=== PATIENT | female | born 1985 | race Two or more races ===

== ENCOUNTER → 2016-07-09 | Outpatient (CLI) | payer OTHER ==
[~2016-07-09] MED LIST: OMNIPAQUE 350 MG/ML, 100ML BOTTLE ONE
== END | disposition home or self-care (01) ==
LOC: CFH 08:20
PROVIDERS: ATTEND Family Medicine
DX: R74.8 Abnormal levels of other serum enzymes (principal)
CPT/HCPCS: 74177; Q9967

== ENCOUNTER → 2017-11-12 | Outpatient (CLI) | payer OTHER ==
[~2017-11-12] MED LIST changes: +NONE PER PT; -OMNIPAQUE 350 MG/ML, 100ML BOTTLE ONE
== END | disposition home or self-care (01) ==
LOC: STAR 15:14
PROVIDERS: ATTEND Specialist
DX: Z02.9 Encounter for administrative examinations, unspecified (principal)

== ENCOUNTER 2017-11-17 08:56 | Day surgery (SDC) | payer OTHER ==
[~2017-11-17] VITALS: Ht 160 cm; Wt 66.5 kg
[2017-11-17] MEDS ORDERED: LACTATED RINGERS 1,000 ML IV SCH (09:28)
[2017-11-17] MEDS ORDERED: ONDANSETRON ODT 8 MG PO ONE (09:30)
[2017-11-17] MEDS ORDERED: ACETAMINOPHEN 500 MG TABLET PO ONE (09:30)
[2017-11-17] MEDS ORDERED: SCOPOLAMINE PATCH, 1.5MG PATCH.TD72 TD ONE (09:30)
[2017-11-17] MEDS ORDERED: OxyconTIN ER 20 MG TAB.ER PO ONE (09:30)
[2017-11-17] MEDS ORDERED: GABAPENTIN 300 MG CAPSULE PO ONE (09:30)
[2017-11-17 09:31] VITALS: BP 101/58
[2017-11-17] MEDS ORDERED: FENTANYL PF 250 MCG/5ML ONE (09:42)
[2017-11-17] MEDS ORDERED: MIDAZOLAM 1 MG/ML, 2ML ONE (09:42)
[2017-11-17] MEDS ORDERED: PROPOFOL 10 MG/ML, 20ML ONE (09:43)
[2017-11-17] MEDS ORDERED: GLYCOPYRROLATE 0.4 MG/2 ML, 2ML ONE (09:44)
[2017-11-17] MEDS ORDERED: NEOSTIGMINE 1 MG/ML, 10ML ONE (09:44)
[2017-11-17] MEDS ORDERED: ROCURONIUM 10MG/ML,5ML ONE (09:44)
[2017-11-17] MEDS ORDERED: CEFAZOLIN 1,000 MG ONE ×2 (09:45)
[2017-11-17] MEDS ORDERED: ONDANSETRON 2MG/ML, 2ML ONE (09:45)
[2017-11-17] MEDS ORDERED: DEXAMETHASONE 4 MG/ML, 1ML ONE ×2 (09:45)
[2017-11-17] MEDS ORDERED: SODIUM CHLORIDE 0.9% PF 10ML ONE (09:45)
[2017-11-17 11:02] LABS: HCG UR SG 1.018 (1.003-1.030)
[2017-11-17] MEDS ORDERED: SILVER NITRATE STICK TP ONE (11:46)
[2017-11-17] MEDS ORDERED: BUPIVACAINE/PF-EPI 0.5% 1:200K ONE (11:46)
[2017-11-17] MEDS ORDERED: FENTANYL PF 100 MCG/2ML IV PRN (12:00)
[2017-11-17] MEDS ORDERED: PROMETHAZINE 25 MG/ML, 1ML IV PRN (12:00)
[2017-11-17] MEDS ORDERED: LABETALOL 5MG/ML, 20ML IV PRN (12:00)
[2017-11-17] MEDS ORDERED: OXYcodone 5 MG/5 ML ORAL.SOL UDC PO PRN (12:00)
[2017-11-17] MEDS ORDERED: ACETAMINOPHEN 325 MG TABLET PO PRN (12:00)
[2017-11-17] MEDS ORDERED: ONDANSETRON 2MG/ML, 2ML IV PRN (12:00)
[2017-11-17] MEDS ORDERED: ONDANSETRON ODT 8 MG PO PRN (12:00)
[2017-11-17] MEDS ORDERED: MEPERIDINE/PF 25MG/0.5ML IVPush PRN (12:00)
[2017-11-17] MEDS ORDERED: HYDROmorphone 1 MG/ML, 1ML IV PRN (12:00)
[2017-11-17] MEDS ORDERED: MORPHINE SULFATE 4 MG/ML, 1ML IVPush PRN (12:00)
[2017-11-17] MEDS ORDERED: hydrALAzine 20 MG/ML, 1ML IV PRN (12:00)
[2017-11-17] MEDS ORDERED: PROMETHAZINE 25 MG/ML, 1ML IM PRN ×2 (12:00)
[2017-11-17] MEDS ORDERED: KETOROLAC 30 MG/1 ML ONE (12:55)
[2017-11-17] MEDS ORDERED: DIPHENHYDRAMINE 50 MG/ML, 1ML ONE (13:20)
[2017-11-17] MEDS ORDERED: MORPHINE SULFATE 4 MG/ML, 1ML ONE (13:28)
[2017-11-17] MEDS ORDERED: DIPHENHYDRAMINE 50 MG/ML, 1ML IVPush ONE (13:30)
[2017-11-17] MEDS ORDERED: MEPERIDINE/PF 50 MG/ML ONE (13:31)
== END 2017-11-17 17:25 | disposition home or self-care (01) ==
LOC: OUT 08:56
PROVIDERS: ATTEND Specialist
DX: N80.1 Endometriosis of ovary (principal); N94.6 Dysmenorrhea, unspecified; N94.10 Unspecified dyspareunia
CPT/HCPCS: 58662; 81025; J0690; J1100; J1200; J1885; J2175; J2250; J2405; J2704; J2710; J3010; J7120; Q0162

== ENCOUNTER → 2017-12-30 | Outpatient (CLI) | payer OTHER | END | disposition home or self-care (01) | LOC: CFH 16:10 | PROVIDERS: ATTEND Family Medicine | DX: R31.9 Hematuria, unspecified (principal) | CPT/HCPCS: 76770 ==